=== PATIENT | female | born 1975 | race Two or more races ===

== ENCOUNTER 2016-03-31 17:36 | Emergency (ER) | payer MEDICARE, OTHER ==
[~2016-03-31] VITALS: Ht 160 cm; Wt 108.9 kg
[~2016-03-31 17:36] MED LIST: ALPR0.5T PO; AMLO5TAB2 PO; ASPI81CH PO; CAL667C PO; FENO54TA4 PO; GABA-494 PO; HYDR-3682 PO; IBUP800T24 PO; INSUINJ37 SUBCUT; LOSA50TA6 PO; Lasix PO; OMEP20TA44 PO; benazepril PO
[2016-03-31 19:19] LABS: Basophils # (auto) 0 uL; Basophils % (auto) 0.3 % (0.0-2.0); DEFINITIVE VIEW TRANSMISSION; Eosinophils # (auto) 0.1 uL; Eosinophils % (auto) 1.7 % (0.0-7.0); Hematocrit 24.7 % (36.0-46.0); Hemoglobin 8.3 g/dL (12.2-16.2); Lymphocytes # (auto) 0.9 uL; Lymphocytes % (auto) 11.1 % (10.0-50.0); Mean Corpuscular Hemoglobin 31.5 pg (28.0-32.0); Mean Corpuscular Hgb Conc. 33.7 g/dL (32.0-36.0); Mean Corpuscular Volume 93.5 fL (80.0-100.0); Mean Platelet Volume 7.9 fL (7.4-10.4); Monocytes # (auto) 0.8 uL; Monocytes % (auto) 9.8 % (0.0-12.0); Neutrophils # (auto) 6.4 uL; Neutrophils % (auto) 77.1 % (37.0-80.0); Platelet Count (auto) 235 10^3/uL (140-450); Red Cell Distribution Width 14.9 % (11.6-16.0); White Blood Cell 8.3 10^3/uL (4.4-10.8)
[2016-03-31 19:20] LABS: BUN/Creatinine Ratio 8.5; Calcium 7.7 mg/dL (8.5-10.1); Magnesium 2.4 mg/dL (1.6-2.6); Potassium 4.3 mmol/L (3.5-5.1)
[2016-03-31 19:34] LABS: Bilirubin, Total 1.1 mg/dL (0.2-1.0); Total Protein 7.8 g/dL (6.4-8.2)
[2016-03-31] MEDS ORDERED: FUROSEMIDE 20 MG/2 ML VIAL IV ONE (19:45)
[2016-03-31] MEDS ORDERED: traMADol HCL 50 MG TAB PO ONE (19:45)
[2016-03-31] MEDS ORDERED: FUROSEMIDE 20 MG TAB PO ONE (20:30)
[2016-03-31 20:40] VITALS: BP 149/76
[2016-03-31 21:12] LABS: B-Type Natriuretic Peptide 428.6 pg/mL (0-100); Temperature: 22.5 C (20.0-25.0)
== END 2016-03-31 21:17 | disposition home or self-care (01) ==
LOC: ER 17:40
DX: I13.2 Hypertensive heart and chronic kidney disease with heart failure and with stage 5 chronic kidney disease, or end stage renal disease (principal); I50.23 Acute on chronic systolic (congestive) heart failure; N18.6 End stage renal disease; M79.89 Other specified soft tissue disorders; E11.22 Type 2 diabetes mellitus with diabetic chronic kidney disease; F41.9 Anxiety disorder, unspecified; J44.9 Chronic obstructive pulmonary disease, unspecified; E78.5 Hyperlipidemia, unspecified; M79.604 Pain in right leg; Z90.49 Acquired absence of other specified parts of digestive tract; Z86.73 Personal history of transient ischemic attack (TIA), and cerebral infarction without residual deficits; Z99.2 Dependence on renal dialysis
CPT/HCPCS: 36415; 71020; 80053; 83735; 83880; 84484; 85025; 93005; 93971